=== PATIENT | female | born 1970 | race Caucasian/White ===

== ENCOUNTER 2016-12-11 23:53 | Emergency (ER) | payer SELFPAY ==
--- NOTE | 2016-12-13 01:26 | ER ---
ADMIT: 12/11/2016 RM/LOC: ER [facility] MR#: [id number] [facility] [address] [place], [place] [id number] SANTI JOJO DIAKY[address] [address] Emergency Room Report SEX: F AGE: 46 : 1970 CORRECTED: 12/12/2016 0636 NJV DATE: 12/11/2016 HISTORY OF PRESENT ILLNESS: A 46-year-old, female, who presents to the emergency room with a headache. She said it started at 7 o'clock or 5 hours prior to coming to the emergency room while she was at work. Then, her headache went up, and when they checked her, they told her to come to the hospital to get evaluated. She is sensitive to light and had symptoms like this before. REVIEW OF SYSTEMS: Otherwise negative. PAST MEDICAL HISTORY: Hypertension, chronic headaches, and migraine. MEDICATIONS: She takes losartan and furosemide and reports that she has been taking the medication a little bit more regular because she thought that this would lower her blood pressure. ALLERGIES: ALLERGIC TO PENICILLIN AND THIMEROSAL. SOCIAL HISTORY: She is a pack smoker. PHYSICAL EXAMINATION: VITAL SIGNS: Blood pressure 158/86, heart rate 74, respirations 16, temp is 97.8, O2 sats 98%. GENERAL: Mildly anxious. HEENT: Normal inspection except mild photophobia. NECK: Supple. RESPIRATIONS: No distress. SKIN: Good color and turgor. NEUROLOGIC: Cranial nerves II through XII intact. Mood and affect appropriate and oriented x4. She has family at bedside and she is looking very good and interactive with them, not very acute distress. CLINICAL IMPRESSION: Migraine headache, acute, with hypertension. DISPOSITION: Given a note to allow her to return to work tomorrow. Medications given today Phenergan and Toradol. Discharged home. LETA Amato / Alhaji La MD / modl JOB #: [id number] CC: Alhaji La MD, Attending Physician Livan Edge MD, Family Physician CORRECTED: 12/12/2016 0636 NJV
== END 2016-12-12 01:06 | disposition home or self-care (01) ==
LOC: ER 23:53
DX: G43.909 Migraine, unspecified, not intractable, without status migrainosus (principal); I10 Essential (primary) hypertension; F17.210 Nicotine dependence, cigarettes, uncomplicated; Z88.0 Allergy status to penicillin; Z88.1 Allergy status to other antibiotic agents; Z88.8 Allergy status to other drugs, medicaments and biological substances; Z79.899 Other long term (current) drug therapy